=== PATIENT | male | born 1990 | race Caucasian/White ===

== ENCOUNTER 2019-03-09 11:23 | Emergency (ER) | payer OTHER ==
[~2019-03-09] VITALS: Ht 182.9 cm; Wt 65.8 kg
--- NOTE | 2019-03-09 11:35 | NUR ---
ED Nurse Note: pt amb into room. arrives from home with c/o opiate withdrawal. relates body discomfort and n/v of bile. pt is a/ox4. placed on potline monitor, awaits md matos.
--- NOTE | 2019-03-09 12:30 | NUR ---
ED Nurse Note: PT got out of bed without assistance, safely went to bathroom to void. PT back in bed safely.
[2019-03-09 12:48] VITALS: BP 119/77
--- NOTE | 2019-03-09 12:53 | NUR ---
ED Nurse Note: PT A/O x 3, follows command, anxious, N/V bag provided, uncontrolled extremities movement.
--- NOTE | 2019-03-09 13:03 | NUR ---
ED Nurse Note: pt awaiting further eval and orders by ed md. pt remains restless and with n/v. remains a/ox4
[2019-03-09] MEDS ORDERED: Haloperidol 5mg/ml Inj IM ONE (13:15)
[2019-03-09] MEDS ORDERED: DiphenhydrAMINE 50mg/ml Inj IVP ONE (13:15)
[2019-03-09 13:30] LABS: BASOPHILS % (AUTO) 1.4 % (0.0-2.0); HEMATOCRIT 45.8 % (42.0-52.0); HEMOGLOBIN 15.5 G/DL (14.2-18.0); LYMPHOCYTES % (AUTO) 26.3 % (20.0-45.0); MEAN CORPUSCULAR VOLUME 91 FL (80-99); MONOCYTES % (AUTO) 6.2 % (1.0-10.0); PLATELET COUNT 344 K/UL (150-450); RED BLOOD COUNT 5.03 M/UL (4.70-6.10); RED CELL DISTRIBUTION WIDTH 10.7 % (11.6-14.8); WHITE BLOOD COUNT 7.6 K/UL (4.8-10.8)
[2019-03-09 13:31] LABS: APPEARANCE,URINE CLEAR; BILIRUBIN, URINE NEGATIVE (NEGATIVE); COLOR,URINE PALE YELLOW; GLUCOSE, URINE (UA) NEGATIVE (NEGATIVE); KETONES,URINE NEGATIVE (NEGATIVE); LEUKOCYTE ESTERASE ,URINE NEGATIVE (NEGATIVE); NITRITE,URINE NEGATIVE (NEGATIVE); PH,URINE 8 (4.5-8.0); PROTEIN,URINE NEGATIVE (NEGATIVE); UROBILINOGEN,URINE NORMAL MG/DL (0.0-1.0)
[2019-03-09 13:34] LABS: ANION GAP 7 mmol/L (5-15); BLOOD UREA NITROGEN 12 mg/dL (7-18); CALCIUM 9.8 MG/DL (8.5-10.1); CARBON DIOXIDE 32 MMOL/L (21-32); CHLORIDE 104 MMOL/L (98-107); POTASSIUM 4.1 MMOL/L (3.5-5.1); SODIUM 143 MMOL/L (136-145)
--- NOTE | 2019-03-09 13:40 | Diagnostic Imaging Report ---
Indication: Chest pain Technique: One view of the chest Comparison: none Findings: Lungs and pleural spaces are clear. Heart size is normal. Impression: No acute process
[2019-03-09 13:44] LABS: ALANINE AMINOTRANSFERASE 43 U/L (12-78); ALBUMIN 4.3 G/DL (3.4-5.0); ALKALINE PHOSPHATASE 90 U/L (46-116); ASPARTATE AMINO TRANSFERASE 35 U/L (15-37); BILIRUBIN,TOTAL 0.5 MG/DL (0.2-1.0); CREATINE KINASE 144 U/L (26-308)
--- NOTE | 2019-03-09 14:44 | NUR ---
ED Nurse Note: Jaylin Nataliacosta (fiance)- Addendum: 03/09/19 at 1444 by MIKAL ED Nurse Note: did not answer, left a voicemail
--- NOTE | 2019-03-09 15:27 | Emergency Room Report ---
History of Present Illness General Chief Complaint: General Complaint Source: Patient Present Illness HPI 28-year-old male brought in by paramedics due to possible opiate intake and intake of Suboxone feeling nauseated. Patient appears in mild distress and shaking. Vitals are within normal limits. Patient reports that he took a Suboxone that was given to him by a friend however does not know whether he was Suboxone. Patient reports that he used to intake lots of oxycodone off the street and is afraid that he was exposed to fentanyl. Patient is speaking full sentences. Appears to be going through withdrawal symptoms of a stimulant. Denies chest pain, shortness of breath, palpitation, abdominal pain, nausea vomiting. No track marvin are noted on his body. Patient denies taking any alcohol. Denies SI and HI. Denies having access to firearms Allergies: Coded Allergies: No Known Allergies (Unverified , 03/09/19) Patient History Past Medical History: see triage record Past Surgical History: unable to obtain Family History: none Social History: drug use Immunizations: UTD Reviewed Nursing Documentation: PMH: Agreed; PSxH: Agreed Nursing Documentation-PMH Past Medical History: No Stated History Review of Systems All Other Systems: negative except mentioned in HPI Physical Exam Vital Signs Date Time Temp Pulse Resp B/P (MAP) Pulse Ox O2 Delivery O2 Flow Rate FiO2 03/09/19 11:30 98.2 18 100 Room Air 03/09/19 12:48 66 119/77 Sp02 EP Interpretation: reviewed, normal General Appearance: alert/responsive Head: normocephalic, atraumatic Eyes: PERRL, lids + conjunctiva normal ENT: hearing intact, no angioedema Neck: supple/symm/no masses, no meningismus Respiratory: effort normal, no wheezing, chest symmetrical Cardiovascular: regular rate, rhythm, no murmur, gallop, rub, no edema Cardiovascular #2: 2+ radial (R), 2+ radial (L) Gastrointestinal: non-tender, no mass, non-distended, no rebound/guarding, normal bowel sounds Musculoskeletal: gait & station normal, strength & tone normal, normal ROM, non -tender Neurologic: oriented x3, sensory intact, normal speech Psychiatric: no suicidal/homicidal ideation, anxious Skin: no rash, well hydrated Lymphatic: normal inspection Medical Decision Making PA Attestation All diagnoses and treatment plans were reviewed and discussed with my supervising physician Dr. Harrington Diagnostic Impression: Primary Impression: Cocaine abuse Additional Impression: Benzodiazepine abuse ER Course 28-year-old male brought in by paramedics due to possible opiate intake and intake of Suboxone feeling nauseated. Patient appears in mild distress and shaking. Vitals are within normal limits. Patient reports that he took a Suboxone that was given to him by a friend however does not know whether he was Suboxone. Patient reports that he used to intake lots of oxycodone off the street and is afraid that he was exposed to fentanyl. Patient is speaking full sentences. Appears to be going through withdrawal symptoms of a stimulant. Denies chest pain, shortness of breath, palpitation, abdominal pain, nausea vomiting. No track marvin are noted on his body. Patient denies taking any alcohol. Denies SI and HI. Denies having access to firearms Ddx considered but are not limited to: generalized anxiety disorder, panic attack, depression with psycotic featurs, bipolar disorder, drug overdose Vital signs: are WNL, pt. is afebrile H&PE are most consistent with: Cocaine abuse, benzodiazepine abuse ORDERS: Psychiatric order set ED INTERVENTIONS: NS bolus, Haldol, Benadryl, Zofran DISCHARGE: At this time pt. is stable for d/c to home. Will provide printed patient care instructions, and any necessary prescriptions. Care plan and follow up instructions have been discussed with the patient prior to discharge Patient was picked up by his fiance to go to sober contact mental health institutions that gave contact info 2. Patient stable time of discharge. EKG Diagnostic Results Rate: normal Rhythm: NSR ST Segments: no acute changes Chest X-Ray Diagnostic Results Chest X-Ray Diagnostic Results : Chest X-Ray Ordered: Yes # of Views/Limited/Complete: 1 View Indication: Other EP Interpretation: Yes Interpretation: no consolidation, no effusion, no pneumothorax, no acute cardiopulmonary disease Impression: No acute disease Electronically Signed by: Jalen Tiwari PA-C Last Vital Signs Date Time Temp Pulse Resp B/P (MAP) Pulse Ox O2 Delivery O2 Flow Rate FiO2 03/09/19 12:48 97.5 66 23 119/77 100 Room Air Disposition: HOME, SELF-CARE Condition: Stable Referrals: [facility]ERR[facility] (PCP) Patient Instructions: Benzodiazepine Withdrawal, Stimulant Use Disorder-Cocaine Additional Instructions: Follow-up with a psychiatrist regarding your dependency to cocaine and benzodiazepine if worsening symptoms return to emergency room Jalen Mayer Mar 09, 2019 15:26
[2019-03-09 15:35] VITALS: BP 119/77
--- NOTE | 2019-03-09 15:35 | NUR ---
ER DISCHARGE NOTE: Patient is cleared to be discharged per ERMD, pt is aox4, on room air, with stable vital signs. pt was given dc instructions, pt was able to verbalize understanding, pt id band and iv site removed without complications. pt is able to ambulate with steady gait. pt took all belongings. pt with sallye driving him home.
== END 2019-03-09 15:35 | disposition home or self-care (01) ==
LOC: EMR 12:30
DX: F14.10 Cocaine abuse, uncomplicated (principal); F13.10 Sedative, hypnotic or anxiolytic abuse, uncomplicated; R07.9 Chest pain, unspecified
CPT/HCPCS: 36415; 71045; 80053; 80196; 80307; 80329; 81001; 82550; 84484; 85025; 96361; 96372; 96374; 96375; J1200; J1630; J2405; Z7502; 99284